=== PATIENT | female | born 1935 | race Caucasian/White ===

== ENCOUNTER 2016-10-02 10:04 | Day surgery (SDC) | payer MEDICARE, BC ==
[~2016-10-02] VITALS: Ht 152.4 cm; Wt 52.3 kg
[2016-10-02] MEDS ORDERED: NEURONTIN600 MG PO (10:39)
[2016-10-02] MEDS ORDERED: ULTRAM50 MG PO (10:39)
[2016-10-02] MEDS ORDERED: LISINOPRIL10 MG PO (10:40)
[2016-10-02 10:47] VITALS: BP 133/64; Ht 152.4 cm; Wt 52.3 kg
== END 2016-10-02 12:05 | disposition home or self-care (01) ==
LOC: D.OPS 10:04
DX: M51.16 Intervertebral disc disorders with radiculopathy, lumbar region (principal); M53.3 Sacrococcygeal disorders, not elsewhere classified; G89.29 Other chronic pain; Z98.1 Arthrodesis status; I10 Essential (primary) hypertension; Z79.899 Other long term (current) drug therapy
CPT/HCPCS: 62322; G0260

== ENCOUNTER 2016-10-09 12:54 | Day surgery (SDC) | payer MEDICARE, BC ==
[~2016-10-09 12:54] MED LIST: LISINOPRIL10 MG PO; NEURONTIN600 MG PO; ULTRAM50 MG PO
[2016-10-09 15:01] VITALS: BP 143/57; Ht 152.4 cm
--- NOTE | 2016-10-10 08:08 | PRO ---
PATIENT:IDA VELAZQUEZ MEDICAL RECORD: [id number] : 35 LOCATION:[facility] ADMISSION DATE: 10/09/16 PROCEDURE PERFORMED BY: CASH MAJOR MD DATE OF PROCEDURE: 10/09/2016 Ms. Velazquez is an 81-year-old female who is known to this service, was seen by Dr. Maldonado last week for lumbar epidural steroid injection and SI joint injection on the right side. The patient presents and relates that she has a history of right SI joint pain and pain down her right leg, terminating in her calf region. The patient has had back surgeries in the past. The patient was referred by Dr. James Moctezuma for evaluation and epidural steroid injection. Dr. Maldonado did IVORY at L4-L5 and a right SI joint injection a week ago. The patient relates that her pain went from 8/10 to 0/10 within the next day and remained that way for approximately 4 days. The patient relates that pain has slowly rebounded, come back and now is about 4/10. The patient presents today for followup and for repeat lumbar epidural steroid injection at L4-L5 and a right SI joint injection. Risks and benefits were discussed with the patient including risk of bleeding, infection and damage to underlying structures. It should be noted that the patient is currently on no anticoagulation therapy at this time. The patient accepts risks and benefits and expresses wish to have an epidural steroid injection and a right SI joint injection. The patient was placed in sitting position, Betadine prepped and draped. Local anesthetic of 2% lidocaine was then used to obtain skin wheal at L4-L5. A 17-gauge Tuohy needle was then introduced in the L4-L5 interspace. It took several attempts. The patient seems to have lots of arthritis and bony prominences in the L4-L5 area. Finally, we were able to get loss of resistance at L4-L5 after multiple attempts and approximately 6 mL of solution, which included 3 mL of 0.25% bupivacaine along with 1 cc of 80 mg Depo-Medrol and 2 mL of sterile saline was injected in the epidural space. The patient tolerated that procedure well. After Betadine prep of the right SI joint, another skin wheal was raised with 2% lidocaine and a 22-gauge spinal needle was introduced into the right SI joint area and approximately 10 mL of 0.25% bupivacaine along with 80 mg of Depo-Medrol was instilled in the right SI joint area. The patient tolerated the procedure well. The patient relates that the pain had mild decrease from about 4/5 to about a 3/5. The patient is to return in 1 week for followup and possible repeat right SI joint injection with an L4-L5 IVORY at the same time. TRANSINT:[id number] Voice Confirmation ID: [id number] DOCUMENT ID: [id number] CASH MAJOR MD at 0808 CC: [id number] DICTATION DATE: 10/09/16 1437 WAREHOUSE CLERK: 10/10/16 0222 DEP [facility] 10/09/16 [facility] [address] [place] [address]
== END 2016-10-09 14:50 | disposition home or self-care (01) ==
LOC: D.OPS 12:54
DX: M54.5 Low back pain (principal); M53.3 Sacrococcygeal disorders, not elsewhere classified; M54.16 Radiculopathy, lumbar region; M19.90 Unspecified osteoarthritis, unspecified site
CPT/HCPCS: 62322; G0260

== ENCOUNTER 2016-10-17 12:10 | Day surgery (SDC) | payer MEDICARE, BC ==
--- NOTE | 2016-10-17 15:05 | NUR ---
1505 PAIN RATED ZERO, PROCEDURE CANCELLED.
== END 2016-10-17 15:05 | disposition home or self-care (01) ==
LOC: D.OPS 12:10
DX: M51.36 Other intervertebral disc degeneration, lumbar region (principal); Z01.810 Encounter for preprocedural cardiovascular examination; Z01.811 Encounter for preprocedural respiratory examination; Z01.812 Encounter for preprocedural laboratory examination; Z53.9 Procedure and treatment not carried out, unspecified reason

== ENCOUNTER 2017-03-20 12:49 | Day surgery (SDC) | payer MEDICARE, BC ==
--- NOTE | 2017-03-20 14:55 | NUR ---
1300-RECD TO OPS-TO WAITING ROOM FOR A PATIENT CARE ROOM. 1400-TO ROOM 2508. DR ENAMORADO NOTIFIED. WILL BE CLOSE TO AN HOUR BEFORE DR ENAMORADO IS AVAILABLE. 1430-PATIENT DECIDED TO LEAVE WITHOUT TREATMENT, DOES NOT WANT TO WAIT ON MD FOR PROCEDURE.
== END 2017-03-20 15:00 | disposition home or self-care (01) ==
LOC: D.OPS 12:49
DX: M51.36 Other intervertebral disc degeneration, lumbar region (principal); Z53.9 Procedure and treatment not carried out, unspecified reason

== ENCOUNTER 2018-11-20 12:37 | Inpatient (IN) | payer MEDICARE, BC ==
[~2018-11-20] VITALS: Ht 152.4 cm; Wt 49.4 kg
--- NOTE | ~2018-11-20 | CN ---
PATIENT NAME:IDA VELAZQUEZ MEDICAL RECORD: [id number] : 35 LOCATION:D[facility] ADMIT DATE: 11/20/18 ACCOUNT: [id number] CONSULTING PHYSICIAN: LICHA FAIR MD REFERRING PHYSICIAN: ELISABETH GALLARDO MD DATE OF CONSULTATION: 11/20/2018 MEDICAL CONSULT CONSULTING PHYSICIAN: Dr. Brewster REASON FOR CONSULTATION: Medical clearance prior to surgery. HISTORY OF PRESENT ILLNESS: The patient is an 83-year-old female who was attending her in the same hospital. When she walked out of his room, she said her shoe stuck to the floor and she fell on her right arm. She had immediate pain in her shoulder and was transported to the ED. She had no loss of consciousness. Evaluation in the Emergency Room Department showed normal vital signs, obvious asymmetry below the right humerus, and neurovascularly intact. X-rays showed humerus fracture just below the hardware from prior right shoulder replacement. She was admitted by Dr. Gallardo and asked to have medical clearance. The patient has had no recent cardiovascular symptoms. She has been under significant stress due to her 's illness and hospitalization for CHF. He in fact has been accepted to rehab tomorrow at [facility]. PAST MEDICAL HISTORY: Severe lumbar stenosis with failed pain stimulator implant at [facility] on chronic Dilaudid therapy, osteoarthritis, Foster's esophagus, diverticulosis, fibromyalgia, GERD, essential hypertension, hyperlipidemia, Raynaud disease. SURGICAL HISTORY: He has had lumbar back surgery in 1995 and 1997, hand surgery in 1997, lumbar L3-L4 fusion, rotator cuff repair on the right, hammertoe repair in 2014 on the right great toe, hammertoe reconstruction. ALLERGIES: FLAGYL AND FLU VACCINE. FAMILY HISTORY: Father of heart disease. Mother had cancer and lung disease. One sister with diabetes. SOCIAL HISTORY: and has been currently hospitalized for systolic congestive heart failure. She has never smoked or used alcohol. HOME MEDICATIONS: Dilaudid 1 mg p.o. q.6 hours for severe pain, gabapentin 600 mg p.o. b.i.d., lisinopril 10 mg a day, Zantac 150 mg p.o. b.i.d., probiotic 1 capsule daily, vitamin D 5000 units p.o. daily. REVIEW OF SYSTEMS: GENERAL: [place] well until fall. No recent fever. HEENT: No recent visual change, sinus congestion, sore throat, or hearing difficulty. RESPIRATORY: No SOB or cough. CARDIAC: No exertional rest chest pain, claudication, edema or history of heart disease. She has history of hypertension. CONSULT REPORT [id number] IDA VELAZQUEZ GASTROINTESTINAL: No nausea, vomiting, change in stools, blood per rectum. GENITOURINARY: No dysuria or incontinence. GYNECOLOGIC: No vaginal bleeding. ENDOCRINE: Denies polyuria, polydipsia, heat or cold intolerance. NEUROLOGIC: No history of stroke, TIA, or vascular headaches. MUSCULOSKELETAL: Chronic severe lower back pain with standing radiates into both of her buttocks, gastrocs and below her knees into her feet. PSYCHIATRIC: Admits to stress, but not in mild depression, but not suicidal thoughts. PHYSICAL EXAMINATION: VITAL SIGNS: Shows a pulse of 85 and regular, respirations are 16, blood pressure was 166/67 with a sat of 98% on room air. GENERAL: The patient is alert and oriented and in obvious pain. HEENT: Her eyes are clear. Oropharynx unremarkable. NECK: Supple without bruits or masses. CHEST: Clear. HEART: Regular without murmur. PMI appropriate. ABDOMEN: Soft, nontender. SKIN: She has some bruising over her right shoulder on her left inferior ocular orbit. MUSCULOSKELETAL: She cannot abduct her right arm whatsoever without pain. Elbow shows good range of motion. NEUROLOGIC: Oriented to person, place, and time. Cranial nerves intact. Gait was not tested. LABORATORY DATA: Shows a white count of 88,000 with normal diff, H&H is 13.6 and 40.3 respectively. BMP shows BUN of 20, glucose of 109 nonfasting. Liver functions are normal and EKG is pending. Humerus x-ray shows acute significantly displaced oblique fracture involving the mid to distal aspect of the right humerus at approximately the distal end of the humeral component from previous shoulder arthroplasty. CT of the brain shows no acute intracranial abnormality and only mild cerebral atrophy and contusion over the right frontal scalp midline. ASSESSMENT: 1. Fall without syncope. 2. Right spiral humeral fracture. 3. Chronic pain syndrome with lumbar canal stenosis. 4. Hypertension, hyperlipidemia, osteoarthritis, fibromyalgia, Foster esophagus, Raynaud disease. PLAN: EKG will be obtained. If it is within normal limits, the patient is medically cleared for intended surgery with general or local anesthesia. We will follow with you. TRANSINT:[id number] Voice Confirmation ID: [id number] DOCUMENT ID: [id number] CONSULT REPORT [id number] IDA VELAZQUEZ TIMOTHY MD CC: [id number] DICTATION DATE: 11/20/181725 STEEPING PRESS TENDER: 11/21/18 0031 ADM IN [facility] [address] [place] [address]
[2018-11-20 13:07] LABS: BASOPHILS 0.2 % (0-2); EOSINOPHILS 0 % (0-7); HEMATOCRIT 40.3 % (36.0-48.0); HEMOGLOBIN 13.6 g/dL (12-16); IMMATURE GRANULOCYTES 0.5 % (0-5); LYMPHOCYTES 21.5 % (15-50); MCH 30.6 pg (26.0-34.0); MCHC 33.7 g/dL (31.0-37.0); MCV 90.8 fL (80.0-100.0); MEAN PLATELET VOLUME 9.4 fL (7.4-10.4); MONOCYTES 9.4 % (2-11); NEUTROPHILS 68.4 % (40-80); PLATELET COUNT 180 10x3/uL (130-400); RBC 4.44 10x6/uL (4.00-5.40); RDW 13.9 % (11.5-14.5); WBC 8.8 10x3/uL (4.8-10.8)
[2018-11-20 13:15] VITALS: BP 166/67
[2018-11-20 13:33] LABS: ANION GAP 13.2 mmol/L (8-16); BILIRUBIN - TOTAL 0.41 mg/dL (0.2-1.3); CALCIUM 8.9 mg/dL (8.5-10.1); CARBON DIOXIDE 25.5 mmol/L (21.0-32.0); CREATININE - SERUM 0.8 mg/dL (0.6-1.3); POTASSIUM - SERUM 3.7 mmol/L (3.5-5.1); PROTEIN - SERUM 6.4 g/dL (6.4-8.2)
[2018-11-20 13:57] VITALS: BP 159/70
--- NOTE | 2018-11-20 14:11 | NUR ---
REPORT CALLED TO JONY ANAYA
--- NOTE | 2018-11-20 14:20 | NUR ---
RICHA ARM SLING APPLIED
[2018-11-20 14:30] VITALS: BP 164/60
--- NOTE | 2018-11-20 14:30 | NUR ---
TRANSPORTED TO ROOM #2217, CONDITION STABLE
--- NOTE | 2018-11-20 14:50 | NUR ---
PATIENT TO ROOM WITH IV INTACT. NO COMPLAINTS OR SIGNS OF DISTRESS. FAMILY AT BEDSIDE. CALL LIGHT WITHIN REACH.
[2018-11-20] MEDS ORDERED: ZANTAC300 MG PO (14:52)
[2018-11-20] MEDS ORDERED: PROBIOTIC250 MG PO (14:52)
[2018-11-20] MEDS ORDERED: VITAMIN D5000 UNIT PO (14:53)
[2018-11-20] MEDS ORDERED: NEURONTIN600 MG PO (14:54)
[2018-11-20] MEDS ORDERED: HYDROCODON-ACE1 EA10 PO (14:55)
[2018-11-20 17:48] VITALS: BP 119/78; BP 187/79; BMI 21.3; BMI 38.5
[2018-11-20 17:53] VITALS: BP 187/79
--- NOTE | 2018-11-20 18:45 | NUR ---
PATIENT IN BED WITH NO COMPLAINTS OR SIGNS OF DISTRESS. FAMILY AT BEDSIDE. SPOKE WITH PATIENT ABOUT BRANTLEY CATH PLACEMENT. STATES SHE DOESNT KNOW IF SHE WANTS ONE OR NOT. EXPLAINED TO PATIENT THAT THERE IS AN ORDER IF SHE DECIDES TO GET ONE. VERBALIZED UNDERSTANDING. CALL LIGHT WITHIN REACH.
[2018-11-20 20:25] VITALS: BP 124/59
--- NOTE | 2018-11-20 23:00 | NUR ---
PLACED 16 FR BRANTLEY CATHETER. COLLECTED UA AND SENT TO LAB. GAVE PT DILAUDID 1 MG IV PUSH FOR PAIN 01/29. NO OTHER NEEDS. WILL CONTINUE TO MONITOR.
[2018-11-20 23:48] LABS: APPEARANCE CLEAR (CLEAR); COLOR YELLOW (YELLOW); SPECIFIC GRAVITY 1.015 (1.005-1.020)
[2018-11-20 23:49] LABS: BILIRUBIN NEGATIVE (NEGATIVE); GLUCOSE NEGATIVE (NEGATIVE); KETONE NEGATIVE (NEGATIVE); NITRITE NEGATIVE (NEGATIVE); PROTEIN NEGATIVE (NEGATIVE); UROBILINOGEN NORMAL (NORMAL)
[2018-11-21] VITALS (12 sets, daily range): BP systolic 99–152; BP diastolic 43–67; Ht 152.4 cm; Wt 49.4 kg
[2018-11-21 06:43] LABS: BASOPHILS 0.1 % (0-2); EOSINOPHILS 0.3 % (0-7); HEMATOCRIT 35.8 % (36.0-48.0); HEMOGLOBIN 12.1 g/dL (12-16); IMMATURE GRANULOCYTES 0.3 % (0-5); LYMPHOCYTES 12.1 % (15-50); MCH 30.5 pg (26.0-34.0); MCHC 33.8 g/dL (31.0-37.0); MCV 90.2 fL (80.0-100.0); MEAN PLATELET VOLUME 9.3 fL (7.4-10.4); MONOCYTES 11.1 % (2-11); NEUTROPHILS 76.1 % (40-80); PLATELET COUNT 165 10x3/uL (130-400); RBC 3.97 10x6/uL (4.00-5.40); RDW 13.9 % (11.5-14.5); WBC 7.8 10x3/uL (4.8-10.8)
[2018-11-21 06:47] LABS: CALC OSMOLALITY 281 mosm/kg (275-300); CALCIUM 8.4 mg/dL (8.5-10.1); CARBON DIOXIDE 29.4 mmol/L (21.0-32.0); CHLORIDE - SERUM 107 mmol/L (98-107); CREATININE - SERUM 0.7 mg/dL (0.6-1.3); GLUCOSE 118 mg/dL (74-106); POTASSIUM - SERUM 3.9 mmol/L (3.5-5.1); SODIUM 141 mmol/L (136-145); eGFR NON AFRICAN AMERICAN 85 mL/min (90-120)
[2018-11-21 06:51] LABS: UREA NITROGEN 13 mg/dL (7-18)
--- NOTE | 2018-11-21 10:49 | NUR ---
PATIENT TO OR.
--- NOTE | 2018-11-21 13:01 | NUR ---
PATIENT BACK FORM OR AT THIS TIME WITH VS STABLE. NO COMPLAINTS, IV INTACT. WILL RECIEVED DILAUDID FOR PAIN. FAMILY AT BEDSIDE. CALL LIGHT WITHIN REACH.
[2018-11-21] MEDS ORDERED: ZOLOFT50 MG PO (13:21)
--- NOTE | 2018-11-21 14:00 | NUR ---
PATIENT IN BED WITH IV INTACT. NO COMPLAINTS OR SIGNS OF DISTRESS. VS STABLE. EYES CLOSED RESTING QUIETLY. CALL LIGHT WITHIN REACH.
--- NOTE | 2018-11-21 16:00 | NUR ---
PATIENT TOLERATED REGULAR DIET WITH NO NAUSEA OR VOMITTING. IV INTACT. VS STABLE. CALL LIGHT WITHIN REACH. FAMILY AT BEDSIDE. BSCDS ON AND WORKING.
--- NOTE | 2018-11-21 18:18 | NUR ---
IV REMOVED WITH CATH TIP INTACT. NOTIFIED DR. GALLARDO. PAIN MEDS CHANGED TO PO. BRANTLEY TO BE REMOVED PER PATIENT REQUEST. CALL LIGHT WITHIN REACH.
--- NOTE | 2018-11-21 20:00 | NUR ---
DEFLATED BULB AND REMOVED BRANTLEY CATHETER. 500 MLS IN BAG AT TIME OF REMOVAL. NO OTHER NEEDS. WILL CONTINUE TO MONITOR.
[2018-11-22 04:00] VITALS: BP 102/48
--- NOTE | 2018-11-22 08:00 | NUR ---
ASSESSMENT PER FLOW SHEET. PT IS WITHOUT DISTRESS.MONITOR FOR NEEDS.FAMILY AT BEDSIDE
[2018-11-22 08:45] VITALS: BP 109/45
--- NOTE | 2018-11-22 15:03 | NUR ---
DISCHARGE INSTRUCTIONS WITH PT AND FAMILY. STATES UNDERSTANDING.
--- NOTE | 2018-11-22 15:16 | NUR ---
LEFT UNIT VIA WHEELCHAIR FOR TRANSPORT HOME
--- NOTE | 2018-11-23 14:17 | OP ---
PATIENT NAME: IDA VELAZQUEZ MEDICAL RECORD: [id number] :35 LOCATION:D.[facility] ADMISSION DATE:11/20/18 SURGEON: ELISABETH GALLARDO MD DATE OF OPERATION: 11/22/2018 PREOPERATIVE DIAGNOSIS: Periprosthetic fracture of the right humerus. POSTOPERATIVE DIAGNOSIS: Periprosthetic fracture of the right humerus. PROCEDURE: Open reduction internal fixation, periprosthetic fracture of the right humerus. SURGEON: Elisabeth Gallardo MD ANESTHESIA: General. INTRAOPERATIVE COMPLICATIONS: None. SUMMARY OF PATHOLOGIC FINDINGS: Spiral fracture just below the tip of the previously placed reverse total shoulder arthroplasty that required internal fixation under fluoroscopic guidance. OPERATIVE SUMMARY IN DETAIL: After obtaining the appropriate preoperative orthopedic surgery consent as well as anesthetic consultation, evaluation, and clearance, the patient was brought to the operating room and placed on the operating table in the supine position. After general laryngeal mask airway was administered, the patient was placed in left lateral decubitus position. All pressures points were well padded to include down leg peroneal pad as well as axillary roll. The patient was held firmly to the operating table using the vacuum pack suction system. Right upper extremity and shoulder were then prepped and draped in routine sterile fashion. The arm was held in the arm holding device for a lateral position. Posterior approach was made from the distal tip of the olecranon. This incision was carried down to the triceps. The triceps fascia was split in line. Careful dissection was then utilized to visualize the radial nerve, which was protected with a red vessel loop for the rest of the case. The wound was then irrigated. The patient's fracture hematoma was removed. The fracture was reduced anatomically. A single 1.6 Dall-Miles cable was passed for temporary fixation and then a 9-hole low profile large frag plate was then placed after contouring with a plate barrientos. Serial and sequential drill and fill technique was utilized with a combination of both locking and nonlocking screws. At the end, final radiographs were taken and submitted for radiologist review. The wound was copiously irrigated. The triceps was then closed with #1 Vicryl. This was followed #1 Vicryl, 2-0 Vicryl and megan for skin closure. Sterile dressings were applied. The patient was awakened and taken to the recovery room in stable condition. All final needle and sponge counts were correct. TRANSINT:[id number] Voice Confirmation ID: [id number] DOCUMENT ID: [id number] OPERATIVE REPORT [id number] IDA VELAZQUEZ MD, ELISABETH BECKHAM at 1417 CC: [id number] DICTATION DATE: 11/22/18 145 WAREHOUSE GUARD: 11/22/181918 DIS IN 11/22/18 [place] [id number] [place] [id number]
== END 2018-11-22 15:17 | disposition home or self-care (01) | DRG 493 ==
LOC: D.ER 12:37 → D.MS 13:48
PROVIDERS: Family Medicine; ADMIT Orthopaedic Surgery; ATTEND Orthopaedic Surgery
PROC: 0PSC04Z Reposition Right Humeral Head with Internal Fixation Device, Open Approach (ICD-10-PCS; principal; 2018-11-22)
DX: S42.341A Displaced spiral fracture of shaft of humerus, right arm, initial encounter for closed fracture (principal); M97.31XA Periprosthetic fracture around internal prosthetic right shoulder joint, initial encounter; W01.0XXA Fall on same level from slipping, tripping and stumbling without subsequent striking against object, initial encounter; Y92.238 Other place in hospital as the place of occurrence of the external cause; M48.061 Spinal stenosis, lumbar region without neurogenic claudication; M79.7 Fibromyalgia; K57.90 Diverticulosis of intestine, part unspecified, without perforation or abscess without bleeding; I10 Essential (primary) hypertension; E78.5 Hyperlipidemia, unspecified